=== PATIENT | female | born 1965 | race Caucasian/White ===

== ENCOUNTER 2019-02-24 06:02 | Emergency (ER) | payer BC, OTHER ==
[2019-02-24 06:38] VITALS: TEMP 97.8; BMI 39.3
--- NOTE | 2019-02-24 07:11 | PDOC ---
History of Present Illness - General Chief Complaint: Pain, Acute Stated Complaint: L TOE INJURY Time Seen by Provider: 02/24/19 07:10 History Source: Patient Exam Limitations: No Limitations - History of Present Illness Initial Comments: Pt is a 53 yo F, with PMH of HTN and SLICK, who is presenting with toe pain. Pt states [facility] around 7:30 pm, and stubbed the L fifth toe. Pt elevated the foot last night and took 2 advil, with minimal relief. Pt states she was able to ambulate, but was having difficulty putting pressure on the front of her L foot. Pt denies any fevers/chills, headache, vision changes, syncope, chest pain, palpitations, SOB, nausea/vomiting, abdominal pain, urinary symptoms, diarrhea/constipation, numbness/tingling/ weakness in her extremities, or leg swelling from baseline. Allergies: NKDA PCP: [place] Social: Pt denies any cigarette, alcohol, or drug use. Pt denies any recent travel or sick contacts. Surgical: no relevant history. Family: no relevant history. 02/24/19 07:20 Lower Ext. Injury Location - Specific Injury Location Foot: left foot normal inspection, left foot bone tenderness (L 5th toe, base) Extremity Pain Location - Extremity Pain Location Extremity Pain Locations: left: 5th toe Past History - Travel Traveled outside of the country in the last 30 days: No Close contact w/someone who was outside of country & ill: No - Past Medical History Allergies/Adverse Reactions: Allergies Allergy/AdvReac Type Severity Reaction Status Date / Time No Known Allergies Allergy Verified 02/24/19 06:28 Home Medications: Ambulatory Orders Citalopram Hydrobromide [Citalopram HBr] 10 mg PO DAILY 02/24/19 Lorazepam [Ativan] 1 mg PO PRN 02/24/19 Losartan 50Mg/Hctz 12.5MG [Hyzaar -] 1 tab PO DAILY 02/24/19 Pantoprazole Sodium [Protonix -] 20 mg PO DAILY 02/24/19 Asthma: Yes COPD: No HTN: Yes Psychiatric Problems: Yes - Immunization History Immunization Up to Date: Yes - Psycho Social/Smoking Cessation Hx Smoking History: Never smoked Hx Alcohol Use: No Drug/Substance Use Hx: No Review of Systems - Review of Systems Able to Perform ROS?: Yes Is the patient limited Gambian proficient: No Constitutional: Yes: Weight Stable. No: Chills, Diaphoresis, Fever, Loss of Appetite, Malaise, Weakness HEENTM: No: Recent change in vision, Nose Congestion, Throat Pain, Throat Swelling, Difficulty Swallowing Respiratory: No: Cough, Orthopnea, Shortness of Breath Cardiac (ROS): No: Chest Pain, Edema, Irregular Heart Rate, Lightheadedness, Palpitations, Syncope, Chest Tightness ABD/GI: No: Constipated, Diarrhea, Nausea, Poor Appetite, Poor Fluid Intake, Vomiting : No: Burning, Dysuria, Frequency, Pain, Urgency Musculoskeletal: Yes: See HPI, Joint Pain. No: Back Pain, Muscle Weakness Integumentary: No: Bruising, Change in Color, Erythema Neurological: No: Headache, Numbness, Paresthesia, Weakness, Unsteady Gait, Dizziness Psychiatric: No: Sleep Pattern Change, Change in Appetite Endocrine: No: Increased Urine, Change in Weight Hematologic/Lymphatic: No: Anemia, Blood Clots, Easy Bleeding, Easy Bruising All Other Systems: Reviewed and Negative *Physical Exam - Vital Signs Last Vital Signs Temp Pulse Resp BP Pulse Ox 97.8 F 82 18 113/77 98 02/24/19 06:34 02/24/19 06:34 02/24/19 06:34 02/24/19 06:34 02/24/19 06:34 - Physical Exam Vitals stable, pt afebrile. Pt in NAD, lying on the bed comfortably. Morbidly obese body habitus. Pt alert and oriented x3. food general manager generally intact, muscular strength and sensation intact. No midline spinal tenderness, step-offs, or crepitus. +TTP over base of 5th L MCP, limited flexion of toe against active resistance. Pt ambulatory but hesitating to place pressure fully on L foot. Head normocephalic, atraumatic. Eyes PERRLA, EOMI. Oropharynx without erythema or exudates, no LAD b/l. No nasal congestion. Hearing intact. Clear heart sounds, S1/S2, no JVD, b/l pedal edema, or heart murmur. Clear lung sounds, no respiratory distress, wheezes, crackles, or accessory muscle use. No abdominal or CVA tenderness to palpation, no rebound, no guarding. Abdomen soft, non-distended, and with normoactive bowel sounds. No significant edema or ecchymosis of L toes or foot. Skin without jaundice or rash. 02/24/19 07:24 Medical Decision Making - Medical Decision Making Pt was seen at bedside, also will be seen by attending Dr. Garcia. Pt presenting with pain to base of 5th left toe, concerning for Rowland vs Pseudo-Rowland fracture. Will evaluate with x-ray of L foot. Provided 650 mg PO tylenol for improvement of pain. Will continue to reassess pt and monitor for symptomatic improvement. X-ray ocular care technician not in ED, pending x-ray to be completed. 02/24/19 07:26 X-ray showed possible small (acute vs chronic) avulsion at PIP joint. No rowland or pseudo-rowland noted. Pt placed in hard sole with crutches. Strict return precautions provided. Advised pt to f/u with podiatry or orthopedics. 02/24/19 08:34 Discharge - Discharge Information Problems reviewed: Yes Clinical Impression/Diagnosis: Toe pain, left Condition: Good Disposition: HOME - Admission No - Follow up/Referral Referrals: Debi Knight MD [Primary Care Provider] - Kulwinder Trinh DO [Staff Physician] - - Patient Discharge Instructions Patient Printed Discharge Instructions: DI for Toe Fracture Additional Instructions: You were seen in the ER today for toe pain. The results of your imaging today showed a possible small avulsion fracture of your left fifth toe. Please follow- up with your primary care doctor and Podiatry within 1-2 days to discuss your visit and make sure your symptoms have improved. Please return to the ER if you have any worsening pain, numbness/weakness/tingling of your toe or foot, development of fevers or chills, loss of consciousness, inability to tolerate food or fluids, or any other concerns. - Post Discharge Activity
[2019-02-24] MEDS ORDERED: ACETAMINOPHEN 325 MG TABLET (FP) PO ONE (07:18)
--- NOTE | 2019-02-24 07:21 | PDOC ---
Attending Attestation - Resident Resident Name: Shaye De La O - ED Attending Attestation I have performed the following: I have examined & evaluated the patient, The case was reviewed & discussed with the resident, I agree w/resident's findings & plan - HPI HPI: 02/24/19 07:19 53 YOF with h/o HTN and GERD presenting with left toe and lateral foot pain after stubbing it on dresser - no weakness or paresthesias. able to ambulate. 02/24/19 07:20 02/24/19 08:00 02/24/19 08:34 - Physicial Exam PE: 02/24/19 07:20 physical exam General: NAD, well appearing Vascular: 2+ DP pulses symmetric and equal. MSK: notable for soft compartments, Cap refill <2 sec. Proximal and distal strength 5/5, no prox knee or ankle tenderness - equal and symmetric. Plantar flexion and dorsiflexion 5/5. FROM. Sensation grossly intact to light touch. + right lateral 5th toe and foot tenderness, no deformity. Neuro: alert, no focal neurologic deficits Skin: color normal color, warm and well perfused. Cap refill <2 sec. 02/24/19 08:00 - Medical Decision Making 02/24/19 07:20 Vital Signs Temp Pulse Resp BP Pulse Ox 97.8 F 82 18 113/77 98 02/24/19 06:34 02/24/19 06:34 02/24/19 06:34 02/24/19 06:34 02/24/19 06:34 VS reviewed, wnl ddx toe fx, avulsion fx, contusion, metatarsal fx. Xray left foot normal joint space alignment, no e/o lisfranc, no metatarsal fx. ?avulsion fx vs chronic arthritic changes to the distal 5th metatarsal will treat conservatively - rosalia taping between 4/5th toes, with gauze and taping, hard sole shoe Discussed results with patient. . Rest ice and elevation. Pain control with OTC meds including motrin/tylenol as needed every 6 hours; no narcotics needed. Podiatry followup provided. Crutches to assist with ambulation, WBAT. Please return to ED for increased pain, weakness, numbness/tingling, fever, or redness. 02/24/19 08:34 02/24/19 09:18
[2019-02-24] MEDS ORDERED: ACETAMINOPHEN 325 MG TABLET (FP) ONE (07:27)
[2019-02-24 09:09] VITALS: BP 123/78; PULSE 73
== END 2019-02-24 09:09 | disposition home or self-care (01) ==
LOC: JER 06:02
DX: M79.675 Pain in left toe(s) (principal); W22.01XA Walked into wall, initial encounter; Y93.89 Activity, other specified; Y92.89 Other specified places as the place of occurrence of the external cause; I10 Essential (primary) hypertension; J45.909 Unspecified asthma, uncomplicated; F99 Mental disorder, not otherwise specified; G47.33 Obstructive sleep apnea (adult) (pediatric)
CPT/HCPCS: 73630-TC-LT; 99282-25

== ENCOUNTER 2022-05-25 09:05 | Day surgery (SDC) | payer BC, OTHER ==
[2022-05-24 08:43] VITALS: BMI 42.6
[2022-05-25] MEDS ORDERED: BUPIVACAINE HCL 100 ML ONE (12:42)
[2022-05-25] MEDS ORDERED: MIDAZOLAM HCL 2 MG/2 ML SINGLE DOSE VIAL ONE (12:43)
[2022-05-25] MEDS ORDERED: PROPOFOL 60 ML ONE (12:43)
[2022-05-25] MEDS ORDERED: BUPIVACAINE LIPOSOME/PF (EXPAREL) 266 MG/20 ML VIAL ONE (12:46)
[2022-05-25] MEDS ORDERED: ceFAZolin SODIUM 1 GM VIAL ONE (14:19)
[2022-05-25] MEDS ORDERED: GABAPENTIN 300 MG CAPSULE PO PRN (16:21)
[2022-05-25] MEDS ORDERED: MAGNESIUM HYDROX 2400MG/30ML ORAL SUSPENSION 30 ML CUP PO PRN (16:22)
[2022-05-25] MEDS ORDERED: MAG HYDROX/AL HYDROX/SIMETH 30 ML UNIT-DOSE CUP PO PRN (16:22)
[2022-05-25] MEDS ORDERED: ONDANSETRON 4 MG/2 ML VIAL IVPUSH PRN (16:22)
[2022-05-25] MEDS ORDERED: oxyCODONE HCL 5 MG TABLET PO PRN (16:28)
[2022-05-25] MEDS ORDERED: ACETAMINOPHEN 1000 MG/100 ML BAG IVPB ONE (16:28)
[2022-05-25] MEDS ORDERED: LACTATED RINGERS SOLUTION 1,000 ML IV SCH (16:30)
[2022-05-25] MEDS ORDERED: ACETAMINOPHEN INJECTION 100 ML IVPB ONE (17:11)
[2022-05-25] MEDS ORDERED: FENTANYL CITRATE/PF 50 MCG/ML VIAL ONE (17:20)
[2022-05-25] MEDS ORDERED: ONDANSETRON 4 MG/2 ML VIAL ONE (17:20)
[2022-05-25] MEDS ORDERED: ALBUTEROL SO4 HFA INHALER IH PRN (18:00)
[2022-05-25] MEDS ORDERED: SENNOSIDES 8.6MG TABLET (FP) PO SCH (22:00)
[2022-05-25] MEDS: CEFAZOLIN SODIUM 2 GM in DEXTROSE 5%-WATER 100 ML IVPB SCH (22:21)
[2022-05-25] MEDS: CELECOXIB 200 MG CAPSULE PO SCH (22:21)
[2022-05-25] MEDS: ASPIRIN COATED 81 MG TABLET.EC PO SCH (22:21)
[2022-05-25] MEDS: MONTELUKAST NA 10 MG TABLET PO SCH (22:21)
[2022-05-25] MEDS: SENNOSIDES/DOCUSATE COMBO (SENNA PLUS) TABLET (UD) PO SCH (22:23)
[2022-05-25] MEDS: oxyCODONE HCL 5 MG TABLET PO PRN (22:23)
[2022-05-26] MEDS: CEFAZOLIN SODIUM 2 GM in DEXTROSE 5%-WATER 100 ML IVPB SCH ×2 (02:31→10:54)
[2022-05-26] MEDS: oxyCODONE HCL 5 MG TABLET PO PRN ×4 (05:38→21:11)
[2022-05-26 07:52] LABS: HEMATOCRIT 34.1 % (32.4-45.2); HEMOGLOBIN 11.7 G/dL (10.7-15.3); MCHC 34.4 g/dl (32.0-36.0); MEAN CELL VOLUME 90.3 fl (80-96); MEAN PLT VOLUME 9.2 fl (7.5-11.1); PLATELET COUNT 181.9 10^3/uL (134-434); RBC 3.78 10^6/uL (3.60-5.2); RDW 13.4 % (11.6-15.6)
[2022-05-26 07:54] LABS: CALCIUM 8.7 mg/dl (8.5-10); CREATININE 0.6 mg/dl (0.55-1.3)
[2022-05-26] MEDS ORDERED: ACETAMINOPHEN 1000 MG/100 ML BAG IVPB PRN (07:58)
[2022-05-26] MEDS ORDERED: PANTOPRAZOLE 20 MG TABLET PO SCH (10:00)
[2022-05-26] MEDS ORDERED: LOSARTAN POTASSIUM 50 MG TABLET PO SCH (10:00)
[2022-05-26] MEDS ORDERED: HYDROCHLOROTHIAZIDE 25 MG TABLET (FP) PO SCH (10:00)
[2022-05-26] MEDS: CELECOXIB 200 MG CAPSULE PO SCH ×2 (10:54→21:08)
[2022-05-26] MEDS: PANTOPRAZOLE 40 MG TABLET PO SCH (10:54)
[2022-05-26] MEDS: SENNOSIDES/DOCUSATE COMBO (SENNA PLUS) TABLET (UD) PO SCH ×2 (10:54→21:11)
[2022-05-26] MEDS: ASPIRIN COATED 81 MG TABLET.EC PO SCH ×2 (10:54→21:08)
[2022-05-26] MEDS: LORATADINE 10 MG TABLET PO SCH (10:54)
[2022-05-26] MEDS: FLUTICASONE/UMECLIDIN/VILANTER(200-62.5-25 TRELEGY ELLIPTA) INAHLER IH SCH (11:18)
[2022-05-26] MEDS: MONTELUKAST NA 10 MG TABLET PO SCH (21:08)
[2022-05-27 07:39] LABS: HEMATOCRIT 34.6 % (32.4-45.2); HEMOGLOBIN 12.2 G/dL (10.7-15.3); MCH 31.4 pg (25.7-33.7); MCHC 35.3 g/dl (32.0-36.0); MEAN CELL VOLUME 89.3 fl (80-96); MEAN PLT VOLUME 8.8 fl (7.5-11.1); PLATELET COUNT 172.6 10^3/uL (134-434); RBC 3.88 10^6/uL (3.60-5.2); RDW 13.9 % (11.6-15.6); WHITE BLOOD COUNT 10.4 10^3/uL (4.0-10.8)
[2022-05-27] MEDS ORDERED: HYDROCHLOROTHIAZIDE 12.5 MG CAPSULE (FP) PO SCH (07:45)
[2022-05-27] MEDS ORDERED: LOSARTAN POTASSIUM 25 MG TABLET PO SCH (08:00)
[2022-05-27] MEDS: oxyCODONE HCL 5 MG TABLET PO PRN (08:34)
[2022-05-27 09:10] VITALS: RESP 18
[2022-05-27] MEDS: ASPIRIN COATED 81 MG TABLET.EC PO SCH (12:06)
[2022-05-27] MEDS: CELECOXIB 200 MG CAPSULE PO SCH (12:06)
[2022-05-27] MEDS: SENNOSIDES/DOCUSATE COMBO (SENNA PLUS) TABLET (UD) PO SCH (12:06)
[2022-05-27] MEDS: LORATADINE 10 MG TABLET PO SCH (12:07)
[2022-05-27] MEDS: PANTOPRAZOLE 40 MG TABLET PO SCH (12:07)
[2022-05-27] MEDS: FLUTICASONE/UMECLIDIN/VILANTER(200-62.5-25 TRELEGY ELLIPTA) INAHLER IH SCH (12:08)
[2022-05-27 14:02] VITALS: BP 103/65; PULSE 103; TEMP 99
== END 2022-05-27 19:07 | disposition home or self-care (01) ==
LOC: FASUSAT 09:05 → FASU 09:05 → FM/S 18:20 → FASUSAT 05-27 19:07
PROVIDERS: ATTEND Orthopaedic Surgery Orthopaedic Surgery of the Spine
PROC: 0MNN0ZZ Release Right Knee Bursa and Ligament, Open Approach (ICD-10-PCS; 2022-05-25)
PROC: 0SRC0J9 Replacement of Right Knee Joint with Synthetic Substitute, Cemented, Open Approach (ICD-10-PCS; principal; 2022-05-25 14:21)
DX: M17.11 Unilateral primary osteoarthritis, right knee (principal)
CPT/HCPCS: 27425; 27447; C1776; 36415; 73560-TC-RT-FY; 80048; 85027; 88305-TC; 88311-TC; 94760; 97010-GP; 97116-GP; 97162-GP; C1713